=== PATIENT | male | born 1965 | race Caucasian/White ===

== ENCOUNTER 2018-08-04 20:42 | Emergency (ER) | payer OTHER ==
[~2018-08-04] VITALS: Ht 190.5 cm; Wt 142.9 kg
[2018-08-04] MEDS: DEXAMETHASONE SOD PHOS 20 MG/5 ML VIAL. IM ONE (21:30)
[2018-08-04] MEDS: KETOROLAC 60 MG/2 ML INJ. IM ONE (21:30)
[2018-08-04] MEDS: ORPHENADRINE CITRATE 60 MG/2 ML VIAL. IM ONE (21:30)
[2018-08-04] MEDS ORDERED: HYDR-971 PO (21:41)
[2018-08-04] MEDS ORDERED: METH-37 PO (21:41)
[2018-08-04] MEDS ORDERED: NAPR-683 PO (21:41)
--- NOTE | 2018-08-04 21:42 | PHYS DOC ---
Past Medical History Past Medical History: No Pertinent History Past Surgical History: Appendectomy Additional Past Surgical Histo: WISDOM Alcohol Use: None Drug Use: None Adult General Chief Complaint Chief Complaint: BACK PAIN OR INJURY HPI HPI Patient is a 53 year old male who presents with right buttock pain. He states that the pain is worse with flexion at the hip and rotation method. Worse with palpation of the posterior buttock. States that she's had this in the past and it is intermittent but it was worse today and to the point where he could not walk. Review of Systems Review of Systems Constitutional: Denies fever or chills [] Eyes: Denies change in visual acuity, redness, or eye pain [] HENT: Denies nasal congestion or sore throat [] Respiratory: Denies cough or shortness of breath [] Cardiovascular: No additional information not addressed in HPI [] GI: Denies abdominal pain, nausea, vomiting, bloody stools or diarrhea [] : Denies dysuria or hematuria [] Musculoskeletal: Denies back pain or joint pain [] Integument: Denies rash or skin lesions [] Neurologic: Denies headache, focal weakness or sensory changes [] Endocrine: Denies polyuria or polydipsia [] All other systems were reviewed and found to be within normal limits, except as documented in this note. Current Medications Current Medications Current Medications Medications (Trade) Dose Ordered Sig/Lashell Start Time Stop Time Status Last Admin Dose Admin Dexamethasone Sodium Phosphate (Decadron) 10 mg 1X ONCE 08/04/18 21:30 08/04/18 21:31 DC 08/04/18 21:30 10 MG Ketorolac Tromethamine (Toradol Im) 30 mg 1X ONCE 08/04/18 21:30 08/04/18 21:31 DC 08/04/18 21:30 30 MG Orphenadrine Citrate (Norflex) 60 mg 1X ONCE 08/04/18 21:30 08/04/18 21:31 DC 08/04/18 21:30 60 MG Allergies Allergies Allergies Coded Allergies Type Severity Reaction Last Updated Verified No Known Drug Allergies 08/04/18 No Physical Exam Physical Exam Constitutional: Well developed, well nourished, no acute distress, non-toxic appearance. HENT: Normocephalic, atraumatic Eyes: PERRLA, EOMI, conjunctiva normal Neck: Trachea midline, no JVD Lungs & Thorax: Bilateral breath sounds clear to auscultation Skin: Warm, dry, no erythema, no rash. Back: No back pain and full range of motion Extremities: Positive straight leg raise at 30, no venous system tenderness or swelling, no tenderness of the leg Neurologic: Alert and oriented X 3, normal motor function, normal sensory function, no focal deficits noted. Psychologic: Affect normal, judgement normal, mood normal. Current Patient Data Vital Signs Vital Signs Date Time Temp Pulse Resp B/P (MAP) Pulse Ox O2 Delivery O2 Flow Rate FiO2 08/04/18 22:03 70 18 172/81 (111) 96 Room Air 08/04/18 20:45 98.6 98.6 EKG EKG [] Radiology/Procedures Radiology/Procedures [] Impressions: Sciatica Course & Med Decision Making Course & Med Decision Making Pertinent Labs and Imaging studies reviewed. (See chart for details) Considered thrombotic disease in the leg, however he has no swelling, is nontender and his pain is completely consistent with sciatica. He has no venous system tenderness. Prescribing anti-inflammatories, muscle relaxers and follow up as an outpatient for reassessment. Dragon Disclaimer Dragon Disclaimer This electronic medical record was generated, in whole or in part, using a voice recognition dictation system. Departure Departure Impression: Primary Impression: Sciatica of right side Disposition: 01 HOME, SELF-CARE Condition: STABLE Patient Instructions: Sciatica, Sciatica with Rehab[facility] Additional Instructions: SEE YOUR PRIMARY DOCTOR FOR RECHECK WITHIN 14 DAYS Scripts Hydrocodone/Apap 5-325 (NORCO 5-325 TABLET) 1 Each Tablet 1-2 EACH PO PRN Q6HRS PRN for PAIN, #10 as needed for pain Prov: KHADIJAH CALDERON DO 08/04/18 Naproxen (NAPROSYN) 500 Mg Tablet 500 MG PO BID PRN for PAIN for 5 Days, #10 TAB Prov: KHADIJAH CALDERON DO 08/04/18 Methocarbamol (ROBAXIN) 500 Mg Tablet 2 TAB PO TID PRN PRN for MUSCLE PAIN, #30 TAB Prov: KHADIJAH CALDERON DO 08/04/18 KHADIJAH CALDERON DO Aug 04, 2018 21:42
[2018-08-04 22:03] VITALS: BP 172/81
== END 2018-08-04 22:30 | disposition home or self-care (01) ==
LOC: ER 20:42
DX: M54.31 Sciatica, right side (principal); M25.551 Pain in right hip; Z90.89 Acquired absence of other organs
CPT/HCPCS: 96372; 99284; J1100; J1885; J2360